=== PATIENT | male | born 1955 | race Hispanic/Latino ===

== ENCOUNTER 2018-05-11 15:39 | Emergency (ER) | payer OTHER ==
[~2018-05-11] VITALS: Ht 177.8 cm; Wt 77.1 kg
[~2018-05-11 15:39] MED LIST: CYCLOBENZAPRINE10 M1 PO; FLONASE120 SPRAY/ INH/SOL; NAPROSYN500 M1 PO; TESSALON PERLE100 MG PO; ZESTORETIC 12.51 TA1 PO; ZITHROMAX Z-PA250 M1 PO
--- NOTE | 2018-05-11 17:18 | CT SCAN REPORT ---
EXAMINATION: CT HEAD WITHOUT CONTRAST CLINICAL INFORMATION: Altered mental status. COMPARISON: CT scan of the head 03/24/2016. TECHNIQUE: Contiguous axial imaging was performed from the skull base to vertex without intravenous administration of contrast. DLP: 614.75 mGy-cm FINDINGS: There is no evidence of acute intracranial hemorrhage or territorial infarction. No abnormal mass effect or midline shift is seen. [place] to white matter differentiation is well preserved. No extra-axial fluid collections are identified. The ventricles and sulci commensurately prominent consistent with [id number] diffuse volume loss, demonstrated on the prior study. There are scattered areas of low attenuation in the periventricular and subcortical white matter, most prominent in the posterior right centrum semiovale, consistent with chronic microvascular ischemic changes and similar compared to prior imaging. There is a scar in the right supraorbital scalp comment demonstrated on prior imaging. There are no acute osseous findings. The visualized mastoid air cells and paranasal sinuses are well-aerated. IMPRESSION: 1. There are no acute bleeds or territorial infarcts. 2. The study redemonstrates diffuse volume loss and chronic microvascular ischemic changes.
[2018-05-11 17:49] LABS: ABSOLUTE BASOPHIL COUNT 0 /CUMM (0.0-0.2); ABSOLUTE EOSINOPHIL COUNT 0 /CUMM (0.0-0.7); ABSOLUTE GRANULOCYTE CT 7.1 /CUMM (1.4-6.5); ABSOLUTE LYMPH COUNT 1.2 /CUMM (1.2-3.4); BASOPHIL % 0.4 % (0.0-2.0); EOSINOPHIL % 0.2 % (0-5); HEMATOCRIT 38.8 % (42-52); MEAN CORPUSCULAR HGB 28.9 PG (27.0-31.0); MEAN CORPUSCULAR HGB CONC 32.7 G/DL (33.0-37.0); MEAN CORPUSCULAR VOLUME 88.5 FL (80.0-94.0); MEAN PLATELET VOLUME 9.2 FL (7.4-10.4); PLATELET COUNT 265 /CUMM (130-400); RBC DISTRIBUTION WIDTH 13.9 % (11.5-14.5); RED BLOOD CELL CT 4.39 /CUMM (4.70-6.10); WHITE BLOOD CELL COUNT 9.4 /CUMM (4.8-10.8)
[2018-05-11 17:51] LABS: GRANULOCYTE % 75.5 % (42.2-75.2)
--- NOTE | 2018-05-11 19:14 | ED AMS/SEIZURE/WEAK/DIZZY ---
History of Present Illness General Chief Complaint: Altered Mental Status Stated Complaint: AMS Source: patient, EMS Exam Limitations: no limitations Vital Signs & Intake/Output Vital Signs & Intake/Output Vital Signs Date Time Temp Pulse Resp B/P B/P Pulse O2 O2 Flow FiO2 Mean Ox Delivery Rate 05/11 2002 98.6 66 18 118/68 94 Room Air 05/11 1830 98.8 92 20 136/75 98 Room Air 05/11 1737 Room Air 05/11 1545 98.2 78 18 98/54 93 Room Air Allergies Coded Allergies: NO KNOWN ALLERGIES (03/24/16) Reconcile Medications No Known Home Medications Triage Note: PT BIBA S/P FOUND IN POSITION IN THE PARKING LOT OF [facility]. PT IS ON PEC, AND PT DOES NOT ANSWER QUESTIONS APPROPRIATELY. PT STATES THAT HE WAS JUST RELAXING. PT WAS FOUND WITH DC PAPER WORK FROM [facility] TO FOLLOW UP WITH OUT PT AND TO CALL 211 IF NEEDING. Triage Nurses Notes Reviewed? yes HPI: 62-year-old male presents via EMS for altered mental status. Patient was found in the parking lot of a local supermarket unconscious. Patient states that he was just discharged from [facility] this morning and is homeless and was laying on the ground taking a nap. No other complaint of. Past History Travel History Traveled to [place] past 21 day No Medical History Any Pertinent Medical History? 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 No Review of Systems Review of Systems Constitutional: Reports: no symptoms. EENTM: Reports: no symptoms. Respiratory: Reports: no symptoms. Cardiovascular: Reports: no symptoms. GI: Reports: no symptoms. Genitourinary: Reports: no symptoms. Musculoskeletal: Reports: no symptoms. Skin: Reports: no symptoms. Neurological/Psychological: Reports: no symptoms. Hematologic/Endocrine: Reports: no symptoms. Immunologic/Allergic: Reports: no symptoms. All Other Systems: Reviewed and Negative Physical Exam Physical Exam General Appearance: well developed/nourished, no apparent distress, alert, comfortable Head: atraumatic, normal appearance Eyes: Bilateral: normal appearance. Neck: normal inspection, supple Respiratory: normal breath sounds, lungs clear Cardiovascular: regular rate/rhythm, normal peripheral pulses Gastrointestinal: soft, non-tender Extremities: normal range of motion Neurologic/Psych: oriented x 3, park manager II-XII nml as tested Core Measures ACS in differential dx? No CVA/TIA Diagnosis No Sepsis Present: No Sepsis Focused Exam Completed? No Progress Differential Diagnosis: dehydration, drug intoxication Plan of Care: Orders Procedure Date/time Status URINE DRUGS OF ABUSE 05/11 1644 Active URINALYSIS 05/11 1644 Active ETHANOL 05/11 1644 Complete COMPREHENSIVE METABOLIC PANEL 05/11 1644 Complete CBC WITHOUT DIFFERENTIAL 05/11 1644 Complete EKG 05/11 1644 Active Laboratory Tests 05/11/18 1742: Anion Gap 11, Estimated GFR 44 L, BUN/Creatinine Ratio 7.5, Glucose 123 H, Calcium 9.9, Total Bilirubin 1.3, AST 73 H, ALT 52, Alkaline Phosphatase 53, Total Protein 7.0, Albumin 4.1, Globulin 2.9, Albumin/Globulin Ratio 1.4, CBC w Diff NO MAN DIFF REQ, RBC 4.39 L, MCV 88.5, MCH 28.9, MCHC 32.7 L, RDW 13.9, MPV 9.2, Gran % 75.5 H, Lymphocytes % 13.1 L, Monocytes % 10.8 H, Eosinophils % 0.2, Basophils % 0.4, Absolute Granulocytes 7.1 H, Absolute Lymphocytes 1.2, Absolute Monocytes 1.0 H, Absolute Eosinophils 0, Absolute Basophils 0, Serum Alcohol < 10.0 Initial ED EKG: normal intervals, normal p-waves, normal QRS complex, nonspecific ST T wave chg Comments: Patient is alert and oriented 3 without alteration of mentation. Patient stable for discharge. Departure Departure Disposition: HOME OR SELF CARE Condition: Stable Clinical Impression Primary Impression: Altered mental state Qualifiers: Altered mental status type: transient alteration of awareness Qualified Code: R40.4 - Transient alteration of awareness Referrals: Patient Has No Primary Care Dr (PCP/Family) Departure Forms: Customer Survey General Discharge Information Prescriptions: Current Visit Scripts No Known Home Medications
[2018-05-11 22:55] VITALS: BP 122/70
== END 2018-05-11 22:55 ==
LOC: ERH 15:39
PROVIDERS: Emergency Medicine
DX: R41.82 Altered mental status, unspecified (principal)
CPT/HCPCS: 80307; 93005; 93010; G0480